=== PATIENT | female | born 1990 | race Caucasian/White ===

== ENCOUNTER 2021-12-02 17:08 | Emergency (ER) | payer OTHER ==
[~2021-12-02 17:08] MED LIST: FLAGYL500 MG PO; FLEXERIL 10 MG10 MG PO; FLONASE 0.05% N16 GM; HYDROCODON-ACE1 EAC4 PO; LEVOFLOXACIN750 MG PO; LORTAB 5-325 M1 EACH PO; PREDNISONE 50 M50 MG PO; SUDAFED 30 MG T30 MG PO
== END 2021-12-02 18:56 | disposition left against medical advice (07) ==
LOC: ER1 17:08
DX: Z53.21 Procedure and treatment not carried out due to patient leaving prior to being seen by health care provider (principal)